=== PATIENT | male | born 1970 | race Asian ===

== ENCOUNTER 2020-03-17 00:31 | Emergency (ER) | payer BC ==
[~2020-03-17] VITALS: Ht 172.7 cm; Wt 68.0 kg
[2020-03-17 01:08] VITALS: Ht 172.7 cm; Wt 68.0 kg
[2020-03-17 03:49] VITALS: BP 118/73
== END 2020-03-17 03:49 | disposition home or self-care (01) ==
LOC: ED 00:31
DX: S11.95XA Open bite of unspecified part of neck, initial encounter (principal); W54.0XXA Bitten by dog, initial encounter; Y93.89 Activity, other specified; Y92.89 Other specified places as the place of occurrence of the external cause; Y99.8 Other external cause status
CPT/HCPCS: 90715; J2001; J2543